=== PATIENT | female | born 1965 | race Caucasian/White ===

== ENCOUNTER 2018-09-12 05:17 | Emergency (ER) | payer OTHER ==
[~2018-09-12] VITALS: Ht 160 cm; Wt 78.7 kg
[~2018-09-12 05:17] MED LIST: BEN25 PO; IBUP-1542 PO; LORA-441 PO; NITR-58 PO; ONDA4TAB14 PO; TRAM50TA2 PO
[2018-09-12 05:21] VITALS: BP 140/84; PULSE 80; RESP 17; Ht 160 cm; Wt 78.7 kg
[2018-09-12] MEDS ORDERED: KETOROLAC 30 MG INJ IM STA (06:26)
--- NOTE | 2018-09-12 06:30 | ERD ---
ER Documentation Chief Complaint Chief Complaint LOW ABDOMINAL PAIN AND BACK PAIN. HPI 53-year-old female with past medical history of diabetes type 2, hypertension, status post cholecystectomy who presents with complaint of left-sided pelvic pain over the past 4 days. States she is having sharp intermittent left sided pelvic pain along with left-sided back pain. She does report that she has been constipated did have a bowel movement yesterday. Has had intermittent nausea yesterday but none this today without any episodes of vomiting. She otherwise denies fevers, chills, dysuria, diarrhea, vaginal bleeding or discharge. She is menopausal. Patient states she ate some cheese and [place] prior to the onset of symptoms. She otherwise without complaint. She denies any history of fibroids or ovarian cyst. ROS All systems reviewed and are negative except as per history of present illness. Medications Home Meds Active Scripts Tramadol HCl (Tramadol HCl) 50 Mg Tablet, 50 MG PO Q6 PRN for PAIN, #20 TAB Prov:ANGELICA HEADLEY PA-C 09/12/18 Ibuprofen* (Motrin*) 600 Mg Tab, 600 MG PO Q6, #30 TAB Prov:JEUDINE,KAILEYHO PA-C 09/12/18 Nitrofurantoin Monohyd Macrocr* (Macrobid*) 100 Mg Capsr, 100 MG PO BID for 5 Days, CAP Prov:ANGELICA HEADLEY PA-C 09/12/18 Ondansetron (Ondansetron Odt) 4 Mg Tab.rapdis, 4 MG PO Q6H PRN for NAUSEA AND/OR VOMITING, #10 TAB Prov:KAILEY HEADLEYHO PA-C 09/12/18 Allergies Allergies: Coded Allergies: Penicillins (Verified Allergy, Unknown, RASHES., 09/12/18) PMhx/Soc History of Surgery: Yes (CHOLECYSTECTOMY) Anesthesia Reaction: No Hx Neurological Disorder: No Hx Respiratory Disorders: No Hx Cardiac Disorders: Yes (HTN) Hx Psychiatric Problems: No Hx Miscellaneous Medical Probl: No Hx Alcohol Use: No Hx Substance Use: No Hx Tobacco Use: No Smoking Status: Never smoker FmHx Family History: diabetes Physical Exam Vitals Vital Signs Date Temp Pulse Resp B/P (MAP) Pulse Ox O2 O2 Flow FiO2 Time Delivery Rate 09/12/18 96.1 80 17 140/84 99 05:21 (102) Physical Exam I have reviewed the triage vital signs. Const: Well nourished, well developed, appears stated age Eyes: PERRL, no conjunctival injection HENT: NCAT, Neck supple without meningismus CV: RRR, Warm, well-perfused extremities RESP: CTAB, Unlabored respiratory effort GI: Obese, tenderness to left pelvic region/iliac, no rebound no guarding soft, non-distended, no masses MSK: No gross deformities appreciated Skin: Warm, dry. No rashes Neuro: grossly non focal Psych: Appropriate mood and affect. Result Diagram: 09/12/18 0635 09/12/18 0634 Results 24 hrs Laboratory Tests Test 09/12/18 06:34 09/12/18 06:35 Urine Color YELLOW Urine Clarity TURBID Urine pH 5.0 Urine Specific [place] 1.008 Urine Ketones NEGATIVE mg/dL Urine Nitrite NEGATIVE mg/dL Urine Bilirubin NEGATIVE mg/dL Urine Urobilinogen NEGATIVE mg/dL Urine Leukocyte Esterase NEGATIVE Immanuel/ul Urine Microscopic RBC 78 /HPF Urine Microscopic WBC 49 /HPF Urine Squamous Epithelial Cells FEW /HPF Urine Bacteria FEW /HPF Urine Mucus FEW /HPF Urine Hemoglobin NEGATIVE mg/dL Urine Glucose 2+ mg/dL Urine Total Protein NEGATIVE mg/dl Sodium Level 139 mmol/L Potassium Level 3.8 mmol/L Chloride Level 101 mmol/L Carbon Dioxide Level 28 mmol/L Anion Gap 10 Blood Urea Nitrogen 19 mg/dl Creatinine 1.09 mg/dl Est Glomerular Filtrat Rate mL/min 53 mL/min Glucose Level 256 mg/dl Calcium Level 9.5 mg/dl Total Bilirubin 0.5 mg/dl Direct Bilirubin 0.00 mg/dl Indirect Bilirubin 0.5 mg/dl Aspartate Amino Transf (AST/SGOT) 29 IU/L Alanine Aminotransferase (ALT/SGPT) 41 IU/L Alkaline Phosphatase 102 IU/L Total Protein 7.6 g/dl Albumin 4.1 g/dl Globulin 3.50 g/dl Albumin/Globulin Ratio 1.17 Lipase 185 U/L White Blood Count 7.7 10^3/ul Red Blood Count 5.41 10^6/ul Hemoglobin 15.0 g/dl Hematocrit 46.3 % Mean Corpuscular Volume 85.6 fl Mean Corpuscular Hemoglobin 27.7 pg Mean Corpuscular Hemoglobin Concent 32.4 g/dl Red Cell Distribution Width 13.2 % Platelet Count 182 10^3/UL Mean Platelet Volume 9.9 fl Immature Granulocytes % 0.300 % Neutrophils % 51.1 % Lymphocytes % 37.8 % Monocytes % 7.3 % Eosinophils % 2.9 % Basophils % 0.6 % Nucleated Red Blood Cells % 0.0 /100WBC Immature Granulocytes # 0.020 10^3/ul Neutrophils # 3.9 10^3/ul Lymphocytes # 2.9 10^3/ul Monocytes # 0.6 10^3/ul Eosinophils # 0.2 10^3/ul Basophils # 0.1 10^3/ul Nucleated Red Blood Cells # 0.0 10^3/ul Current Medications Medications Dose Sig/[place] Start Time Status Last (Trade) Ordered Route PRN Stop Time Admin Dose Reason Admin Ketorolac 30 mg ONCE STAT 09/12/18 DC 09/12/18 Tromethamine IM 06:26 09/12/18 06:33 (Toradol) 06:28 Procedures/MDM 53 yo non- woman presenting with abdominal pain. Given patients pregna ncy test is negative, highly doubt ectopic . Considered causes of female-specific abdominal pain unrelated to (e.g., pelvic inflammatory disease with or without tubo-ovarian abscess, [id number], etc.). Also considered causes of abdominal pain that are not gender-specific (e.g., appendicitis, volvulus, small bowel obstruction, mesenteric adenitis, acute cholecystitis/choledocholithiasis and other biliary pathology, etc.). Patient well-appearing with normal vital signs. Laboratory testing and imaging here reviewed and normal. Patient given strict return precautions for worsening pain, inability to eat/drink, fevers (temperature over 100.4F), or other concerns. Patient instructed to follow up with their primary doctor and is agreeable; all questions were answered. ED course: UA with 49 WBC, will treat with course of nitrofurantoin for presumed UTI Ultrasound of pelvis without acute finding Labs on record unremarkable, lipase within normal limits DISPOSITION PLAN: We discussed follow up with the patient's primary care doctor within 24 to 48 hours. Patient counseled regarding my diagnostic impression and care plan. Prior to discharge all questions answered. Pt agrees with treatment plan and understands strict return precautions. Precautionary instructions provided including instructions to return to the ER if not improving or for any worsening or changing symptoms or concerns. Disclaimer: Inadvertent spelling and grammatical errors are likely due to E HR/dictation software use and do not reflect on the overall quality of patient care. Also, please note that the electronic time recorded on this note does not necessarily reflect the actual time of the patient encounter. Departure Diagnosis: Primary Impression: Anxiety Additional Impression: Wound check, abscess Condition: Stable Patient Instructions: Anxiety Reaction Additional Instructions: Call your primary care doctor TOMORROW for an appointment during the next 2-3 days.See the doctor sooner or return here if your condition worsens before your appointment time. ANGELICA HEADLEY PA-C Sep 12, 2018 06:30
== END 2018-09-12 08:48 | disposition home or self-care (01) ==
LOC: FTE 05:17
DX: F41.9 Anxiety disorder, unspecified (principal); I10 Essential (primary) hypertension; Z48.01 Encounter for change or removal of surgical wound dressing
CPT/HCPCS: 36415; 76830; 76856; 80053; 81001; 83690; 85025; 96372; J1885; Z7502